=== PATIENT | female | born 1995 | race Caucasian/White ===

== ENCOUNTER 2019-03-22 10:53 | Emergency (ER) | payer OTHER, SELFPAY ==
[2019-03-22] VITALS (8 sets, daily range): BP systolic 98–122; BP diastolic 46–70; PULSE 91–129; RESP 18; TEMP 37.7–39.6; O2SAT 98–100; BMI 23.5
[2019-03-22] MEDS: ONDANSETRON 4 MG/2 ML INJ IV (11:26)
[2019-03-22] MEDS: SODIUM CHLORIDE 0.9% 1,000 ML 1000 ML IV ×2 (11:26→12:20)
[2019-03-22] MEDS: KETOROLAC 60 MG/2 ML VIAL 30 MG IV (11:26)
--- NOTE | 2019-03-22 11:26 | ED.NAVMDI ---
HPI - Nausea/Vomiting/Diarrhea <Adelia Crooks PA-C - Last Filed: 03/22/19 20:43> General Chief complaint: Nausea/Vomiting/Diarrhea Stated complaint: fever,vomiting x4days Time Seen by Provider: 03/22/19 11:11 Source: patient Mode of arrival: Ambulatory Limitations: no limitations History of Present Illness HPI Narrative: This healthy 21-year-old female is to ED secondary to 5 day history of fever, started at home on Thursday with shakes and chills. She thinks her home thermometer may not have been accurate but read up to 107. She states that she has had some cold symptoms that seem to get better, but that same day she awoke with headache and hoarse voice. She has also had some dry cough and runny nose. she has also had persistent vomiting that started on Thursday morning. She states that she has not been able to keep down any food or fluids, and when she gets up she feels more dizzy and nauseated. She denies abdominal pain. She denies any diarrhea or bowel changes. She denies any possibility of , states she has menses now. She states that all of her symptoms have been persistent through the weekend, went into outpatient clinic today and was sent here due to inability to keep down fluids. She denies any recent travel or known exposures though has been around some sick coworkers. She denies any dyspnea, chest pain or wheeze. She denies any urinary symptoms or other complaints on systems review Related Data Previous Rx's Medication Instructions Recorded fluconazole [Diflucan] 150 mg PO Q3D #2 tab 03/22/19 levofloxacin [Levaquin] 500 mg PO DAILY 7 Days tab 03/22/19 ondansetron 4 mg PO Q8H PRN 3 Days tab 03/22/19 Allergies Allergy/AdvReac Type Severity Reaction Status Date / Time No Known Drug Allergies Allergy Verified 03/22/19 11:22 Review of Systems <Adelia Crooks PA-C - Last Filed: 03/22/19 20:43> Review of Systems ROS Unobtainable: All systems reviewed & are unremarkable except as noted in HPI and below Patient History <Adelia Crooks PA-C - Last Filed: 03/22/19 20:43> Medical History (Updated 03/22/19 @ 13:40 by Adelia Crooks PA-C) No chronic problems (Acute) Surgical History (Updated 03/22/19 @ 11:54 by Adelia Crooks PA-C) Status post tonsillectomy (Chronic) Social History Smoking Status: Never smoker Substance Use Type: does not use Exam <Adelia Crooks PA-C - Last Filed: 03/22/19 20:43> Narrative Exam Narrative: GENERAL APPEARANCE: Patient resting comfortably, in no distress (on cell phone). EYES: PERRL, EOMI. EARS: Normal auditory canals, TMS intact with normal light reflexes. ORAL CAVITY: Normal oropharynx. THROAT: Mild erythema without exudate NECK/THYROID: Neck supple, full range of motion, shotty cervical lymphadenopathy. LUNGS: Clear to auscultation bilaterally, occasional dry cough on exam. HEART: RRR without murmur, nl S1, S2, no S3 or S4. ABDOMEN: Soft, nontender, nondistended DERMATOLOGIC: No exanthem Initial Vital Signs Initial Vital Signs: Vital Signs Temperature 103.2 F H 03/22/19 11:12 Pulse Rate 122 H 03/22/19 11:12 Respiratory Rate 18 03/22/19 11:12 Blood Pressure 122/70 03/22/19 11:12 Pulse Oximetry 98 03/22/19 11:12 <Shane Zhu DO - Last Filed: 03/23/19 07:58> Initial Vital Signs Initial Vital Signs: Vital Signs Temperature 103.2 F H 03/22/19 11:12 Pulse Rate 122 H 03/22/19 11:12 Respiratory Rate 18 03/22/19 11:12 Blood Pressure 122/70 03/22/19 11:12 Pulse Oximetry 98 03/22/19 11:12 Course <Adelia Crooks PA-C - Last Filed: 03/22/19 20:43> Course Additional Information: Patient has not had any recurrent vomiting while in the department, tolerating fluids and bland food so appears to be able to tolerate p.o. medication for pyelonephritis. Discussed importance of return if any acutely worsening symptoms again or unable to manage p.o. fluids or medications, as well as of follow-up with PCP in a couple of days and she is agreeable Orders Ordered: Discontinued Medications Acetaminophen (Tylenol) 650 mg PO NOW ONE Stop: 03/22/19 12:06 Last Admin: 03/22/19 12:19 Dose: 650 mg Documented by: LEANN Sodium Chloride (Normal Saline 0.9%) 1,000 mls @ 1,000 mls/hr IV BOLUS ONE Stop: 03/22/19 12:19 Last Infusion: 03/22/19 12:22 Dose: 0 mls/hr Documented by: Admin: 03/22/19 11:26 Dose: 1,000 mls/hr Documented by: LEANN Sodium Chloride (Normal Saline 0.9%) 1,000 mls @ 1,000 mls/hr IV BOLUS ONE Stop: 03/22/19 12:56 Last Infusion: 03/22/19 13:28 Dose: 0 mls/hr Documented by: Admin: 03/22/19 12:20 Dose: 1,000 mls/hr Documented by: LEANN Ketorolac Tromethamine (Toradol) 30 mg IV NOW ONE Stop: 03/22/19 11:23 Last Admin: 03/22/19 11:26 Dose: 30 mg Documented by: LEANN Lidocaine/Prilocaine (Lidocaine-Prilocaine Cream) 5 gm TOP NOW ONE Stop: 03/22/19 12:06 Last Admin: 03/22/19 12:22 Dose: Not Given Documented by: LEANN Ondansetron HCl (Zofran) 4 mg IV NOW ONE Stop: 03/22/19 11:21 Last Admin: 03/22/19 11:26 Dose: 4 mg Documented by: LEANN Pantoprazole Sodium (Protonix) 40 mg IV NOW ONE Stop: 03/22/19 12:01 Last Admin: 03/22/19 12:20 Dose: 40 mg Documented by: LEANN Vital Signs Vital signs: Vital Signs - 8 hr 03/22/19 12:49 03/22/19 13:08 03/22/19 13:23 Temperature 99.8 F H Pulse Rate 91 H Pulse Rate [Orthostatic Lying] 91 H Pulse Rate [Orthostatic Sitting] 93 H Pulse Rate [Orthostatic Standing] 97 H Blood Pressure [Left Arm] 103/46 L Blood Pressure [Orthostatic Lying] 102/53 L Blood Pressure [Orthostatic Sitting] 98/61 Blood Pressure [Orthostatic Standing] 106/59 L Pulse Oximetry 100 <Shane Zhu DO - Last Filed: 03/23/19 07:58> Orders Ordered: Discontinued Medications Acetaminophen (Tylenol) 650 mg PO NOW ONE Stop: 03/22/19 12:06 Last Admin: 03/22/19 12:19 Dose: 650 mg Documented by: LEANN Sodium Chloride (Normal Saline 0.9%) 1,000 mls @ 1,000 mls/hr IV BOLUS ONE Stop: 03/22/19 12:19 Last Infusion: 03/22/19 12:22 Dose: 0 mls/hr Documented by: Admin: 03/22/19 11:26 Dose: 1,000 mls/hr Documented by: LEANN Sodium Chloride (Normal Saline 0.9%) 1,000 mls @ 1,000 mls/hr IV BOLUS ONE Stop: 03/22/19 12:56 Last Infusion: 03/22/19 13:28 Dose: 0 mls/hr Documented by: Admin: 03/22/19 12:20 Dose: 1,000 mls/hr Documented by: LEANN Ketorolac Tromethamine (Toradol) 30 mg IV NOW ONE Stop: 03/22/19 11:23 Last Admin: 03/22/19 11:26 Dose: 30 mg Documented by: LEANN Lidocaine/Prilocaine (Lidocaine-Prilocaine Cream) 5 gm TOP NOW ONE Stop: 03/22/19 12:06 Last Admin: 03/22/19 12:22 Dose: Not Given Documented by: LEANN Ondansetron HCl (Zofran) 4 mg IV NOW ONE Stop: 03/22/19 11:21 Last Admin: 03/22/19 11:26 Dose: 4 mg Documented by: LEANN Pantoprazole Sodium (Protonix) 40 mg IV NOW ONE Stop: 03/22/19 12:01 Last Admin: 03/22/19 12:20 Dose: 40 mg Documented by: LEANN Vital Signs Vital signs: Vital Signs - 8 hr 03/22/19 12:49 03/22/19 13:08 03/22/19 13:23 Temperature 99.8 F H Pulse Rate 91 H Pulse Rate [Orthostatic Lying] 91 H Pulse Rate [Orthostatic Sitting] 93 H Pulse Rate [Orthostatic Standing] 97 H Blood Pressure [Left Arm] 103/46 L Blood Pressure [Orthostatic Lying] 102/53 L Blood Pressure [Orthostatic Sitting] 98/61 Blood Pressure [Orthostatic Standing] 106/59 L Pulse Oximetry 100 MDM - Nausea/Vomiting/Diarrhea <Adelia Crooks PA-C - Last Filed: 03/22/19 20:43> Lab Data Attestation: I reviewed the patient's lab results. Result diagrams: 03/22/19 11:20 03/22/19 11:20 Labs: Lab Results 03/22/19 03/22/19 03/22/19 Range/Units 11:17 11:20 11:20 WBC 20.4 H (4.5-11.0) X10^3/uL RBC 4.20 (4.0-5.2) X10^6/uL Hgb 13.0 (12.0-16.0) g/dL Hct 37.2 (36-46) % MCV 88.7 (80-100) fL MCH 31.0 (26-34) PG MCHC 34.9 (30-36) % RDW 12.5 (11.6-14.8) % Plt Count 158 (150-400) X10^3/uL Neut % (Auto) 92.1 H (50-75) % Lymph % (Auto) 1.9 L (25-40) % [place] % (Auto) 5.7 (3-14) % Eos % (Auto) 0.0 L (2-4) % Baso % (Auto) 0.3 (0-2) % Neut # (Auto) 50365 H (6558-9590) /uL Lymph # (Auto) 400 L (3255-8512) /uL [place] # (Auto) 1200 H (0-900) /uL Eos # (Auto) 0 (0-450) /uL Baso # (Auto) 100 (0-100) /uL Sodium 131 L (137-145) mmol/L Potassium 4.2 (3.4-5.1) mmol/L Chloride 96 L (98-107) mmol/L Carbon Dioxide 24 (22-32) mmol/L BUN 15 (7-17) mg/dL Creatinine 1.10 H (0.52-1.04) mg/dL Estimated GFR > 60.0 (>60) mL/min BUN/Creatinine Ratio 13.6 (6-22) Glucose 134 H (70-100) mg/dL Lactate (0.7-2.1) mmol/L Calcium 9.4 (8.4-10.2) mg/dL Total Bilirubin 0.7 (0.2-1.3) mg/dL AST 19 (14-36) IU/L ALT 16 (<35) IU/L Alkaline Phosphatase 85 (38-126) U/L Total Protein 7.0 (6.3-8.2) g/dL Albumin 3.8 (3.5-5.0) g/dL Globulin 3.2 (1.7-4.1) g/dL Albumin/Globulin Ratio 1.2 (1.0-2.8) Lipase (23-300) U/L Urine RBC (0-5/HPF) Urine WBC (0-5/HPF) Ur Squamous Epith Cells (0-5/HPF) Ur Transition Epith Cell (0-5/HPF) Ur Renal Epithelial Cell (0-1/HPF) Urine Bacteria (None) Ur Culture Indicated? Influenza A & B (PCR) Negative (Negative) 03/22/19 03/22/19 03/22/19 Range/Units 11:20 11:27 12:30 WBC (4.5-11.0) X10^3/uL RBC (4.0-5.2) X10^6/uL Hgb (12.0-16.0) g/dL Hct (36-46) % MCV (80-100) fL MCH (26-34) PG MCHC (30-36) % RDW (11.6-14.8) % Plt Count (150-400) X10^3/uL Neut % (Auto) (50-75) % Lymph % (Auto) (25-40) % [place] % (Auto) (3-14) % Eos % (Auto) (2-4) % Baso % (Auto) (0-2) % Neut # (Auto) (6655-3287) /uL Lymph # (Auto) (7498-7120) /uL [place] # (Auto) (0-900) /uL Eos # (Auto) (0-450) /uL Baso # (Auto) (0-100) /uL Sodium (137-145) mmol/L Potassium (3.4-5.1) mmol/L Chloride (98-107) mmol/L Carbon Dioxide (22-32) mmol/L BUN (7-17) mg/dL Creatinine (0.52-1.04) mg/dL Estimated GFR (>60) mL/min BUN/Creatinine Ratio (6-22) Glucose (70-100) mg/dL Lactate 1.1 (0.7-2.1) mmol/L Calcium (8.4-10.2) mg/dL Total Bilirubin (0.2-1.3) mg/dL AST (14-36) IU/L ALT (<35) IU/L Alkaline Phosphatase (38-126) U/L Total Protein (6.3-8.2) g/dL Albumin (3.5-5.0) g/dL Globulin (1.7-4.1) g/dL Albumin/Globulin Ratio (1.0-2.8) Lipase < 10 L (23-300) U/L Urine RBC 1-5/hpf (0-5/HPF) Urine WBC 30-100/hpf H (0-5/HPF) Ur Squamous Epith Cells 1-5 /hpf (0-5/HPF) Ur Transition Epith Cell 1-5/hpf (0-5/HPF) Ur Renal Epithelial Cell 1-5/hpf H (0-1/HPF) Urine Bacteria Many (>30) H (None) Ur Culture Indicated? Specimen cultured Influenza A & B (PCR) (Negative) Point of Care Testing Test Results Negative Urine Dip Bedside Urine Glucose Negative Bedside Urine Bilirubin + 1 Bedside Urine Ketone ++ 40 Urine Specific [place] 1.015 Bedside Urine Occult Blood +++ Bedside Urine pH 6.0 Bedside Urine Protein +++ 300 Bedside Urine Urobilinogen +/- 1mg Bedside Urine Nitrite + Positive Bedside Urine Leukocytes +++ 500 Esterase Imaging Data Chest x-ray: Radiologist's impression: 18 Adelia Crooks PA-C Find Patient Imaging - Leslie Castillo 23 F 1995 ACTIVITY DATE EXAM STATUS AUTHOR 03/22/19 11:44 Signed Gaurav Ruff ORDER STATUS ORDER START ORDER DETAIL CT head/brain wo con Cancelled 03/22/19 12:05 CT facial bones wo con Cancelled 03/22/19 12:[address] [address] XRay Report Signed Patient: Leslie Castillo [facility]#: [id number] : 1995Acct:[id number] Age/Sex: 23 / FDate of Service: 03/22/19 Loc: ED Accession Number: [id number] Procedure: XR chest 1V Ordering Provider: Aedlia Crooks P.A-C PROCEDURE: XR CHEST 1V INDICATIONS: cough, fever TECHNIQUE: One view of the chest was acquired. COMPARISON: None. FINDINGS: Surgical changes and devices: None. Lungs and pleura: An incomplete inspiratory result is noted, causing a crowded appearance to the lung markings. No focal infiltrates are seen. No pneumothorax or significant pleural effusions are seen. Mediastinum: Mediastinal contours appear normal. Heart size is normal. Bones and chest wall: No suspicious bony lesions. Overlying soft tissues appear unremarkable. IMPRESSION: Limited portable chest examination, without a significant cardiopulmonary abnormality identified. Dictated by: Gaurav Ruff M.D. on 03/22/2019 at 11:14 Approved by: Gaurav Ruff M.D. on 03/22/2019 at 11:14 <Shane Zhu DO - Last Filed: 03/23/19 07:58> Lab Data Labs: Lab Results 03/22/19 03/22/19 03/22/19 Range/Units 11:17 11:20 11:20 WBC 20.4 H (4.5-11.0) X10^3/uL RBC 4.20 (4.0-5.2) X10^6/uL Hgb 13.0 (12.0-16.0) g/dL Hct 37.2 (36-46) % MCV 88.7 (80-100) fL MCH 31.0 (26-34) PG MCHC 34.9 (30-36) % RDW 12.5 (11.6-14.8) % Plt Count 158 (150-400) X10^3/uL Neut % (Auto) 92.1 H (50-75) % Lymph % (Auto) 1.9 L (25-40) % [place] % (Auto) 5.7 (3-14) % Eos % (Auto) 0.0 L (2-4) % Baso % (Auto) 0.3 (0-2) % Neut # (Auto) 29419 H (9360-4899) /uL Lymph # (Auto) 400 L (2841-3294) /uL [place] # (Auto) 1200 H (0-900) /uL Eos # (Auto) 0 (0-450) /uL Baso # (Auto) 100 (0-100) /uL Sodium 131 L (137-145) mmol/L Potassium 4.2 (3.4-5.1) mmol/L Chloride 96 L (98-107) mmol/L Carbon Dioxide 24 (22-32) mmol/L BUN 15 (7-17) mg/dL Creatinine 1.10 H (0.52-1.04) mg/dL Estimated GFR > 60.0 (>60) mL/min BUN/Creatinine Ratio 13.6 (6-22) Glucose 134 H (70-100) mg/dL Lactate (0.7-2.1) mmol/L Calcium 9.4 (8.4-10.2) mg/dL Total Bilirubin 0.7 (0.2-1.3) mg/dL AST 19 (14-36) IU/L ALT 16 (<35) IU/L Alkaline Phosphatase 85 (38-126) U/L Total Protein 7.0 (6.3-8.2) g/dL Albumin 3.8 (3.5-5.0) g/dL Globulin 3.2 (1.7-4.1) g/dL Albumin/Globulin Ratio 1.2 (1.0-2.8) Lipase (23-300) U/L Urine RBC (0-5/HPF) Urine WBC (0-5/HPF) Ur Squamous Epith Cells (0-5/HPF) Ur Transition Epith Cell (0-5/HPF) Ur Renal Epithelial Cell (0-1/HPF) Urine Bacteria (None) Ur Culture Indicated? Influenza A & B (PCR) Negative (Negative) 03/22/19 03/22/19 03/22/19 Range/Units 11:20 11:27 12:30 WBC (4.5-11.0) X10^3/uL RBC (4.0-5.2) X10^6/uL Hgb (12.0-16.0) g/dL Hct (36-46) % MCV (80-100) fL MCH (26-34) PG MCHC (30-36) % RDW (11.6-14.8) % Plt Count (150-400) X10^3/uL Neut % (Auto) (50-75) % Lymph % (Auto) (25-40) % [place] % (Auto) (3-14) % Eos % (Auto) (2-4) % Baso % (Auto) (0-2) % Neut # (Auto) (4761-9893) /uL Lymph # (Auto) (6582-7645) /uL [place] # (Auto) (0-900) /uL Eos # (Auto) (0-450) /uL Baso # (Auto) (0-100) /uL Sodium (137-145) mmol/L Potassium (3.4-5.1) mmol/L Chloride (98-107) mmol/L Carbon Dioxide (22-32) mmol/L BUN (7-17) mg/dL Creatinine (0.52-1.04) mg/dL Estimated GFR (>60) mL/min BUN/Creatinine Ratio (6-22) Glucose (70-100) mg/dL Lactate 1.1 (0.7-2.1) mmol/L Calcium (8.4-10.2) mg/dL Total Bilirubin (0.2-1.3) mg/dL AST (14-36) IU/L ALT (<35) IU/L Alkaline Phosphatase (38-126) U/L Total Protein (6.3-8.2) g/dL Albumin (3.5-5.0) g/dL Globulin (1.7-4.1) g/dL Albumin/Globulin Ratio (1.0-2.8) Lipase < 10 L (23-300) U/L Urine RBC 1-5/hpf (0-5/HPF) Urine WBC 30-100/hpf H (0-5/HPF) Ur Squamous Epith Cells 1-5 /hpf (0-5/HPF) Ur Transition Epith Cell 1-5/hpf (0-5/HPF) Ur Renal Epithelial Cell 1-5/hpf H (0-1/HPF) Urine Bacteria Many (>30) H (None) Ur Culture Indicated? Specimen cultured Influenza A & B (PCR) (Negative) Point of Care Testing Test Results Negative Urine Dip Bedside Urine Glucose Negative Bedside Urine Bilirubin + 1 Bedside Urine Ketone ++ 40 Urine Specific [place] 1.015 Bedside Urine Occult Blood +++ Bedside Urine pH 6.0 Bedside Urine Protein +++ 300 Bedside Urine Urobilinogen +/- 1mg Bedside Urine Nitrite + Positive Bedside Urine Leukocytes +++ 500 Esterase Discharge Plan Departure Patient Disposition: Home Clinical Impression: Pyelonephritis, Acute dehydration Discharge Date/Time: 03/22/19 13:53 Instructions: DI for Kidney Infection, DI for Dehydration -- Adult Activity Restrictions/Additional Instructions: It appears on your lab work that you have a kidney infection today, which is most likely causing your vomiting. I have prescribed a once daily antibiotic for you called Levaquin, please pick this up right away and take the 1st dose. I have also prescribed it antinausea medicine like what you had in the IV here that you can use as needed. I did refill your Diflucan that you have had before in case you have a yeast infection caused by antibiotics. As we talked about, you must return to the ED if you are worse again, unable to keep down your fluids or medication this or have high fever that is not responding to ibuprofen and Tylenol. Please continue to take ibuprofen and Tylenol as needed for the next few days. Please call your PCP today and let them know you were seen in the emergency room and we advised due to follow up in the next 48-72 hours for recheck. Your urinary culture should be back by then so that we can make sure this antibiotic is a good choice for the infection Prescriptions: New levofloxacin [Levaquin] 500 mg tablet 500 mg PO DAILY 7 Days RF: 0 ondansetron 4 mg tablet,disintegrating 4 mg PO Q8H PRN (Reason: nausea and vomiting) 3 Days RF: 0 fluconazole [Diflucan] 150 mg tablet 150 mg PO Q3D Qty: 2 RF: 0 Referrals: [facility] [Provider Group] Stand Alone Forms: Work Release Note <Shane Zhu, DO - Last Filed: 03/23/19 07:58> Sign Out Provider Sign Out Attestation: Dr Zhu Co-Sign Statement: I was available for consultation during this patient's emergency department visit. This chart is signed by myself for administrative purposes only. I did not have direct contact with this patient during this visit. They were seen independently by the APC.
[2019-03-22 11:34] LABS: Add Manual Diff / Slide Review NO; Basophils Absolute Auto 100 /uL (0-100); Basophils Percent Auto 0.3 % (0-2); Eosinophils Absolute Auto 0 /uL (0-450); Hematocrit 37.2 % (36-46); Lymphocytes Absolute Auto 400 /uL (1100-4500); Lymphocytes Percent Auto 1.9 % (25-40); Mean Corpuscular HGB Conc 34.9 % (30-36); Mean Corpuscular Volume 88.7 fL (80-100); Monocytes Absolute Auto 1200 /uL (0-900); Monocytes Percent Auto 5.7 % (3-14); Neutrophils Absolute Auto 18800 /uL (1500-7000); Neutrophils Percent Auto 92.1 % (50-75); Platelet Count 158 X10^3/uL (150-400); Red Cell Distribution Width 12.5 % (11.6-14.8); White Blood Cell Count 20.4 X10^3/uL (4.5-11.0)
[2019-03-22 11:41] LABS: Influenza A and B by PCR Rapid Negative (Negative)
--- NOTE | 2019-03-22 11:44 | DI.RAD.S_ITS ---
PROCEDURE: XR CHEST 1V INDICATIONS: cough, fever TECHNIQUE: One view of the chest was acquired. COMPARISON: None. FINDINGS: Surgical changes and devices: None. Lungs and pleura: An incomplete inspiratory result is noted, causing a crowded appearance to the lung markings. No focal infiltrates are seen. No pneumothorax or significant pleural effusions are seen. Mediastinum: Mediastinal contours appear normal. Heart size is normal. Bones and chest wall: No suspicious bony lesions. Overlying soft tissues appear unremarkable. IMPRESSION: Limited portable chest examination, without a significant cardiopulmonary abnormality identified. Dictated by: Gaurav Ruff M.D. on 03/22/2019 at 11:14 Approved by: Gaurav Ruff M.D. on 03/22/2019 at 11:14
[2019-03-22 11:50] LABS: Alanine Aminotransferase 16 IU/L (<35); Albumin 3.8 g/dL (3.5-5.0); Albumin Globulin Ratio 1.2 (1.0-2.8); Alkaline Phosphatase 85 U/L (38-126); Aspartate Aminotransferase 19 IU/L (14-36); BUN Creatinine Ratio 13.6 (6-22); Bilirubin Total 0.7 mg/dL (0.2-1.3); Blood Urea Nitrogen 15 mg/dL (7-17); Calcium 9.4 mg/dL (8.4-10.2); Carbon Dioxide 24 mmol/L (22-32); Chloride 96 mmol/L (98-107); Estimated Glomerular Filt Rate > 60.0 mL/min (>60); Globulin 3.2 g/dL (1.7-4.1); Glucose 134 mg/dL (70-100); HEMOLYSIS < 15 (0-50); Potassium 4.2 mmol/L (3.4-5.1); Sodium 131 mmol/L (137-145)
[2019-03-22 11:59] LABS: Lactate (Lactic Acid) 1.1 mmol/L (0.7-2.1)
[2019-03-22 12:03] LABS: Lipase < 10 U/L (23-300)
[2019-03-22] MEDS: ACETAMINOPHEN 325 MG TABLET 650 MG PO (12:19)
[2019-03-22] MEDS: PANTOPRAZOLE 40 MG VIAL IV (12:20)
[2019-03-22 13:11] LABS: Bacteria Urine Many (>30); Culture Indicated Urine Specimen Cultured; RBC Urine 1-5/HPF (0-5/HPF); Renal Epithelial Cells Urine 1-5/HPF (0-1/HPF); Squamous Epithelial Cell Urine 1-5 /HPF (0-5/HPF); Transitional Epi Cells Urine 1-5/HPF (0-5/HPF); WBC Urine 30-100/HPF (0-5/HPF)
[2019-03-23 17:55] LABS: Procalcitonin 13.98 ng/mL (<0.5)
== END 2019-03-22 13:53 | disposition home or self-care (01) ==
PROVIDERS: Emergency Medicine; Emergency Provider Internal Medicine
DX: N10 Acute pyelonephritis (principal); E86.0 Dehydration
CPT/HCPCS: 36415; 71045; 80053; 81003; 81015; 81025; 83605; 83690; 84145; 85025; 87077; 87086; 87186; 87502; 96361; 96374; 96375; 99283; 99284; C9113; J1885; J2405

== ENCOUNTER 2019-03-23 15:11 | Emergency (ER) | payer OTHER, SELFPAY ==
[2019-03-23 15:24] VITALS: BP 122/80; PULSE 135; RESP 18; TEMP 37.3; O2SAT 100; BMI 23.5
--- NOTE | 2019-03-23 15:50 | ED.FEMALEGU ---
HPI - Female Genitourinary <JEREMI Hansen - Last Filed: 03/23/19 21:19> General Chief complaint: Urogenital-Female Stated complaint: kidney pain getting worse Time Seen by Provider: 03/23/19 15:14 Source: patient Mode of arrival: Ambulatory Limitations: no limitations History of Present Illness HPI Narrative: 23-year-old female presents emergency department complaining of continued vomiting and right flank pain. She states she was seen yesterday in the emergency department for a fever and vomiting for the past 5 days and was diagnosed with pyelonephritis. She reports she was given Levaquin and ondansetron, she states she has been taking the zofran every 6 hours and she has taken Levaquin last evening and this morning. However, she continues to report a fever of up to 105F with Tylenol and ibuprofen and continued vomiting despite the Zofran. She states she vomits every 1-2 hours. She continues to have a dull aching 4/10 right flank pain that is worse with movement and palpation as well as dysuria. Patient denies abdominal pain, chest pain, diarrhea, dizziness, or other concerns. Related Data Previous Rx's Medication Instructions Recorded fluconazole [Diflucan] 150 mg PO Q3D #2 tab 03/22/19 levofloxacin [Levaquin] 500 mg PO DAILY 7 Days tab 03/22/19 ondansetron 4 mg PO Q8H PRN 3 Days tab 03/22/19 metoclopramide HCl [Reglan] 10 mg PO Q6H PRN #14 tab 03/23/19 Allergies Allergy/AdvReac Type Severity Reaction Status Date / Time No Known Drug Allergies Allergy Verified 03/22/19 11:22 Review of Systems <JEREMI Hansen - Last Filed: 03/23/19 21:19> Review of Systems Narrative: REVIEW OF SYSTEMS: GENERAL: Denies fever, chills, malaise, or wt. loss. HENT: No head trauma, sore throat, or dysphagia. EYES: No loss of vision, double vision, eye pain, or irritation. CARDIOVASCULAR: No chest pain, palpitations, or orthopnea. RESPIRATORY: No shortness of breath or cough. GASTROINTESTINAL: Complains of nausea vomiting, see HPI. GENITOURINARY: Reports right flank pain, see HPI. No vaginal discharge or dyspareunia. Denies concerns for STIs MUSCULOSKELETAL: No pain, weakness, or trauma. INTEGUMENTARY: No rash, lesions, or pruritus. NEURO: No numbness, tingling, memory loss, confusion, or headaches. PSYCH: No behavior or mood changes. Patient History <JEREMI Hansen - Last Filed: 03/23/19 21:19> Medical History No chronic problems (Acute) Surgical History Status post tonsillectomy (Chronic) Substance Use Type: does not use Exam <JEREMI Hansen - Last Filed: 03/23/19 21:19> Initial Vital Signs Initial Vital Signs: Vital Signs Temperature 99.2 F 03/23/19 15:24 Pulse Rate 135 H 03/23/19 15:24 Respiratory Rate 18 03/23/19 15:24 Blood Pressure 122/80 03/23/19 15:24 Pulse Oximetry 100 03/23/19 15:24 PHYSICAL EXAMINATION: GENERAL: Well groomed, alert, and cooperative. Answers questions promptly and appropriately. Vital signs noted. HENT: Normocephalic, atraumatic. Hearing intact. Oral mucosa is pink and moist. EYES: Conjunctiva pink, sclera white, no periorbital swelling. CARDIOVASCULAR: S1 and S2 sounds normal. Tachycardia, no murmurs, clicks, or bruits. No pedal edema. RESPIRATORY: Normal respiratory rate, trachea midline, airway patent. No stridor, nasal flaring or accessory muscle use. Lungs are clear in all [place] without wheeze, rhonchi, or crackles. GASTROINTESTINAL: Bowel sounds normoactive. Abdomen is soft and non-tender. No organomegaly, no palpable masses. GENITALURINARY: Right CVA tenderness. MUSCULOSKELETAL: Normal gait and coordination. Equal tone and mass bilaterally. EXTREMITIES: CMS intact, no pedal edema. SKIN: Warm, dry, soft, appropriate color for ethnicity. No lesions, rashes, or wounds. NEURO: Alert and Oriented X 3. Good coordination. No ataxia, or sensory deficits, or cognitive issues. PSYCH: Appropriate affect and mood. <Shane Zhu DO - Last Filed: 03/24/19 06:59> Initial Vital Signs Initial Vital Signs: Vital Signs Temperature 99.2 F 03/23/19 15:24 Pulse Rate 135 H 03/23/19 15:24 Respiratory Rate 18 03/23/19 15:24 Blood Pressure 122/80 03/23/19 15:24 Pulse Oximetry 100 03/23/19 15:24 Course <JEREMI Hansen - Last Filed: 03/23/19 21:19> Course Course Narrative: Patient was given 1 L of normal saline, 1 g of ceftriaxone, Toradol, and Reglan in the emergency department. Patient initially had a heart rate of 135, after administration of medication her heart rate declined to 112. Another liter was administered and her HR decreased to 90bpm.. I spoke with Dr. Boles who agreed that due to decreased white blood cell count, decreased procalcitonin, and response to fluid, patient can be closely followed as out patient. Patient did not vomit during emergency department stay. She agreed to plan of care and denied any other questions. Orders Ordered: Discontinued Medications Sodium Chloride (Normal Saline 0.9%) 1,000 mls @ 1,000 mls/hr IV BOLUS ONE Stop: 03/23/19 16:41 Last Infusion: 03/23/19 17:18 Dose: 0 mls/hr Documented by: Admin: 03/23/19 16:04 Dose: 1,000 mls/hr Documented by: ABELINO Ceftriaxone Sodium/Dextrose (Rocephin) 1 gm in 50 mls @ 100 mls/hr IV NOW ONE Stop: 03/23/19 16:20 Last Infusion: 03/23/19 16:45 Dose: 0 mls/hr Documented by: Admin: 03/23/19 16:04 Dose: 100 mls/hr Documented by: ABELINO Sodium Chloride (Normal Saline 0.9%) 1,000 mls @ 1,000 mls/hr IV BOLUS ONE Stop: 03/23/19 17:59 Last Infusion: 03/23/19 18:12 Dose: 0 mls/hr Documented by: Admin: 03/23/19 17:17 Dose: 1,000 mls/hr Documented by: ABELINO Ketorolac Tromethamine (Toradol) 30 mg IV NOW ONE Stop: 03/23/19 15:45 Last Admin: 03/23/19 16:03 Dose: 30 mg Documented by: ABELINO Metoclopramide HCl (Reglan) 10 mg PO NOW ONE Stop: 03/23/19 15:46 Last Admin: 03/23/19 16:44 Dose: Not Given Documented by: ABELINO Metoclopramide HCl (Reglan) 10 mg IV NOW ONE Stop: 03/23/19 16:03 Last Admin: 03/23/19 16:05 Dose: 10 mg Documented by: ABELINO Vital Signs Vital signs: Vital Signs - 8 hr 03/23/19 15:24 03/23/19 16:30 03/23/19 17:33 Temperature 99.2 F Pulse Rate 135 H 113 H 93 H Respiratory Rate 18 23 18 Blood Pressure 122/80 Blood Pressure [Left Arm] 114/59 L 108/63 Pulse Oximetry 100 99 98 03/23/19 18:34 Temperature 98.0 F Pulse Rate 80 Respiratory Rate 18 Blood Pressure Blood Pressure [Left Arm] 110/70 Pulse Oximetry 98 <Shane Zhu DO - Last Filed: 03/24/19 06:59> Orders Ordered: Discontinued Medications Sodium Chloride (Normal Saline 0.9%) 1,000 mls @ 1,000 mls/hr IV BOLUS ONE Stop: 03/23/19 16:41 Last Infusion: 03/23/19 17:18 Dose: 0 mls/hr Documented by: Admin: 03/23/19 16:04 Dose: 1,000 mls/hr Documented by: ABELINO Ceftriaxone Sodium/Dextrose (Rocephin) 1 gm in 50 mls @ 100 mls/hr IV NOW ONE Stop: 03/23/19 16:20 Last Infusion: 03/23/19 16:45 Dose: 0 mls/hr Documented by: Admin: 03/23/19 16:04 Dose: 100 mls/hr Documented by: ABELINO Sodium Chloride (Normal Saline 0.9%) 1,000 mls @ 1,000 mls/hr IV BOLUS ONE Stop: 03/23/19 17:59 Last Infusion: 03/23/19 18:12 Dose: 0 mls/hr Documented by: Admin: 03/23/19 17:17 Dose: 1,000 mls/hr Documented by: ABELINO Ketorolac Tromethamine (Toradol) 30 mg IV NOW ONE Stop: 03/23/19 15:45 Last Admin: 03/23/19 16:03 Dose: 30 mg Documented by: ABELINO Metoclopramide HCl (Reglan) 10 mg PO NOW ONE Stop: 03/23/19 15:46 Last Admin: 03/23/19 16:44 Dose: Not Given Documented by: ABELINO Metoclopramide HCl (Reglan) 10 mg IV NOW ONE Stop: 03/23/19 16:03 Last Admin: 03/23/19 16:05 Dose: 10 mg Documented by: ABELINO Vital Signs Vital signs: Vital Signs - 8 hr 03/23/19 15:24 03/23/19 16:30 03/23/19 17:33 Temperature 99.2 F Pulse Rate 135 H 113 H 93 H Respiratory Rate 18 23 18 Blood Pressure 122/80 Blood Pressure [Left Arm] 114/59 L 108/63 Pulse Oximetry 100 99 98 03/23/19 18:34 Temperature 98.0 F Pulse Rate 80 Respiratory Rate 18 Blood Pressure Blood Pressure [Left Arm] 110/70 Pulse Oximetry 98 MDM - Female Genitourinary <JEREMI Hansen - Last Filed: 03/23/19 21:19> Medical Records Attestation: I reviewed the patient's medical records. Lab Data Attestation: I reviewed the patient's lab results. Result diagrams: 03/23/19 15:51 03/23/19 15:51 Labs: Lab Results 03/23/19 03/23/19 03/23/19 Range/Units 15:15 15:51 15:51 WBC 9.5 D (4.5-11.0) X10^3/uL RBC 4.03 (4.0-5.2) X10^6/uL Hgb 12.5 (12.0-16.0) g/dL Hct 36.3 (36-46) % MCV 90.1 (80-100) fL MCH 30.9 (26-34) PG MCHC 34.3 (30-36) % RDW 13.0 (11.6-14.8) % Plt Count 148 L (150-400) X10^3/uL Neut % (Auto) 87.4 H (50-75) % Lymph % (Auto) 2.6 L (25-40) % [place] % (Auto) 9.8 (3-14) % Eos % (Auto) 0.0 L (2-4) % Baso % (Auto) 0.2 (0-2) % Neut # (Auto) 8300 H (4421-7303) /uL Lymph # (Auto) 200 L (5239-8422) /uL [place] # (Auto) 900 (0-900) /uL Eos # (Auto) 0 (0-450) /uL Baso # (Auto) 0 (0-100) /uL Sodium (137-145) mmol/L Potassium (3.4-5.1) mmol/L Chloride (98-107) mmol/L Carbon Dioxide (22-32) mmol/L BUN (7-17) mg/dL Creatinine (0.52-1.04) mg/dL Estimated GFR (>60) mL/min BUN/Creatinine Ratio (6-22) Glucose (70-100) mg/dL Lactate (0.7-2.1) mmol/L Calcium (8.4-10.2) mg/dL Total Bilirubin (0.2-1.3) mg/dL AST (14-36) IU/L ALT (<35) IU/L Alkaline Phosphatase (38-126) U/L Total Protein (6.3-8.2) g/dL Albumin (3.5-5.0) g/dL Globulin (1.7-4.1) g/dL Albumin/Globulin Ratio (1.0-2.8) Procalcitonin 9.25 H (<0.5) ng/mL Urine RBC 10-30/hpf H (0-5/HPF) Urine WBC 30-100/hpf H (0-5/HPF) Ur Squamous Epith Cells 1-5 /hpf (0-5/HPF) Urine Bacteria Moderate (10-30) H (None) Granular Casts 0-1/lpf (None) Urine Mucus 1+ H (Negative) Ur Culture Indicated? Specimen cultured 03/23/19 03/23/19 Range/Units 15:51 15:51 WBC (4.5-11.0) X10^3/uL RBC (4.0-5.2) X10^6/uL Hgb (12.0-16.0) g/dL Hct (36-46) % MCV (80-100) fL MCH (26-34) PG MCHC (30-36) % RDW (11.6-14.8) % Plt Count (150-400) X10^3/uL Neut % (Auto) (50-75) % Lymph % (Auto) (25-40) % [place] % (Auto) (3-14) % Eos % (Auto) (2-4) % Baso % (Auto) (0-2) % Neut # (Auto) (2559-4978) /uL Lymph # (Auto) (5417-0695) /uL [place] # (Auto) (0-900) /uL Eos # (Auto) (0-450) /uL Baso # (Auto) (0-100) /uL Sodium 132 L (137-145) mmol/L Potassium 4.2 (3.4-5.1) mmol/L Chloride 100 (98-107) mmol/L Carbon Dioxide 20 L (22-32) mmol/L BUN 12 (7-17) mg/dL Creatinine 0.90 (0.52-1.04) mg/dL Estimated GFR > 60.0 (>60) mL/min BUN/Creatinine Ratio 13.3 (6-22) Glucose 108 H (70-100) mg/dL Lactate 0.9 (0.7-2.1) mmol/L Calcium 9.6 (8.4-10.2) mg/dL Total Bilirubin 0.6 (0.2-1.3) mg/dL AST 22 (14-36) IU/L ALT 17 (<35) IU/L Alkaline Phosphatase 88 (38-126) U/L Total Protein 6.2 L (6.3-8.2) g/dL Albumin 3.3 L (3.5-5.0) g/dL Globulin 2.9 (1.7-4.1) g/dL Albumin/Globulin Ratio 1.1 (1.0-2.8) Procalcitonin (<0.5) ng/mL Urine RBC (0-5/HPF) Urine WBC (0-5/HPF) Ur Squamous Epith Cells (0-5/HPF) Urine Bacteria (None) Granular Casts (None) Urine Mucus (Negative) Ur Culture Indicated? Point of Care Testing Test Results Negative Urine Dip Bedside Urine Glucose Negative Bedside Urine Bilirubin - Negative Bedside Urine Ketone +++ 80 Urine Specific Rebuck 1.015 Bedside Urine Occult Blood +++ Bedside Urine pH 6 Bedside Urine Protein ++ 100 Bedside Urine Urobilinogen +/- 1mg Bedside Urine Nitrite - Negative Bedside Urine Leukocytes + [address] scan - abdomen: Radiologist's impression: [address] [address] [address] Scan Report Signed Patient: Leslie Castillo MMR#: [id number] : 1995Acct:[id number] Age/Sex: 23 / FDate of Service: 03/23/19 Loc: ED Accession Number: [id number] Procedure: CT kidney ureter bladder (KUB) Ordering Provider: Karen Khan PROCEDURE: CT KIDNEY URETER BLADDER (KUB) INDICATIONS: R flank tenderness r/o renal calculi TECHNIQUE: Noncontrast 5 mm thick sections acquired from the diaphragms to the symphysis. 5 mm thick coronal and sagittal reformats were then performed. For radiation dose reduction, the following was used: automated exposure control, adjustment of mA and/or kV according to patient size. COMPARISON: None. FINDINGS: Image quality: Excellent. Lung bases: Lung bases are clear. Heart size is normal. Urinary system: Right kidney is enlarged. There is perinephric stranding along the inferior pole. There is minimal prominence of the proximal ureter and periureteral stranding. No kidney stones. Bladder wall thickness is normal; no calcified bladder stones. Other solid organs: Liver is enlarged. Gallbladder is is unremarkable. Pancreas is normal in contours. Spleen is normal in size. No adrenal nodules. Peritoneum and bowel: Unenhanced bowel loops demonstrate normal wall thickness and caliber. No free fluid or air. The appendix is not visualized. Nodes and vessels: No retroperitoneal or mesenteric adenopathy by size criteria. Aorta and inferior vena cava are normal in caliber. Abdominal wall: No ventral hernias. Pelvis: Mild dependent free pelvic fluid. No inguinal hernias or adenopathy. Bones: No suspicious bony lesions. No vertebral body compression fractures. IMPRESSION: 1. Mild right perinephric fat stranding as well as proximal right periureteral stranding. No visualized stone. Recently passed stone cannot be excluded. Other etiologies such as infection cannot be excluded given lack of IV contrast. Recommend correlation to urinalysis. Dictated by: Vanessa Baez M.D. on 03/23/2019 at 16:01 Approved by: Vanessa Baez M.D. on 03/23/2019 at 16:19 ECG Data Interpretation: Sinus tachycardia, rate 112, OH interval 131, QTC 358. No ST elevation or ST depression. T-wave inversion noted in lead 3 and V1. No ectopy. EKG also viewed by Dr. Zhu per protocol. MDM Narrative Medical decision making narrative: 23-year-old female who was seen yesterday in the emergency department diagnosed with pyelonephritis, return emergency department for continued vomiting. She recently presents with tachycardia and low-grade elevated temp. This was corrected after administration of 2 L of fluid from a heart rate of 135 beats per minute to 90 beats per minute. Her pro calcitonin and white blood cell count are significantly trending down after taking Levaquin. Patient was given a dose of ceftriaxone in the emergency department to cover for gram-negative bacteria per culture, as sensitivity was not completed at this time. Less concern for sepsis due to resolution of tachycardia after administration of fluids, decreased white blood cell count, decreased procalcitonin, normal lactate, and resolution of symptoms in emergency department. Less likely renal calculi contributing to patient's symptoms due to negative CT scan. Patient was encouraged to increase fluid intake, monitor fever closely. strict return precautions given. Close follow-up instructions discussed <Shane Zhu, DO - Last Filed: 03/24/19 06:59> Lab Data Labs: Lab Results 03/23/19 03/23/19 03/23/19 Range/Units 15:15 15:51 15:51 WBC 9.5 D (4.5-11.0) X10^3/uL RBC 4.03 (4.0-5.2) X10^6/uL Hgb 12.5 (12.0-16.0) g/dL Hct 36.3 (36-46) % MCV 90.1 (80-100) fL MCH 30.9 (26-34) PG MCHC 34.3 (30-36) % RDW 13.0 (11.6-14.8) % Plt Count 148 L (150-400) X10^3/uL Neut % (Auto) 87.4 H (50-75) % Lymph % (Auto) 2.6 L (25-40) % [place] % (Auto) 9.8 (3-14) % Eos % (Auto) 0.0 L (2-4) % Baso % (Auto) 0.2 (0-2) % Neut # (Auto) 8300 H (6962-3504) /uL Lymph # (Auto) 200 L (5047-4224) /uL [place] # (Auto) 900 (0-900) /uL Eos # (Auto) 0 (0-450) /uL Baso # (Auto) 0 (0-100) /uL Sodium (137-145) mmol/L Potassium (3.4-5.1) mmol/L Chloride (98-107) mmol/L Carbon Dioxide (22-32) mmol/L BUN (7-17) mg/dL Creatinine (0.52-1.04) mg/dL Estimated GFR (>60) mL/min BUN/Creatinine Ratio (6-22) Glucose (70-100) mg/dL Lactate (0.7-2.1) mmol/L Calcium (8.4-10.2) mg/dL Total Bilirubin (0.2-1.3) mg/dL AST (14-36) IU/L ALT (<35) IU/L Alkaline Phosphatase (38-126) U/L Total Protein (6.3-8.2) g/dL Albumin (3.5-5.0) g/dL Globulin (1.7-4.1) g/dL Albumin/Globulin Ratio (1.0-2.8) Procalcitonin 9.25 H (<0.5) ng/mL Urine RBC 10-30/hpf H (0-5/HPF) Urine WBC 30-100/hpf H (0-5/HPF) Ur Squamous Epith Cells 1-5 /hpf (0-5/HPF) Urine Bacteria Moderate (10-30) H (None) Granular Casts 0-1/lpf (None) Urine Mucus 1+ H (Negative) Ur Culture Indicated? Specimen cultured 03/23/19 03/23/19 Range/Units 15:51 15:51 WBC (4.5-11.0) X10^3/uL RBC (4.0-5.2) X10^6/uL Hgb (12.0-16.0) g/dL Hct (36-46) % MCV (80-100) fL MCH (26-34) PG MCHC (30-36) % RDW (11.6-14.8) % Plt Count (150-400) X10^3/uL Neut % (Auto) (50-75) % Lymph % (Auto) (25-40) % [place] % (Auto) (3-14) % Eos % (Auto) (2-4) % Baso % (Auto) (0-2) % Neut # (Auto) (4944-1226) /uL Lymph # (Auto) (6356-5719) /uL [place] # (Auto) (0-900) /uL Eos # (Auto) (0-450) /uL Baso # (Auto) (0-100) /uL Sodium 132 L (137-145) mmol/L Potassium 4.2 (3.4-5.1) mmol/L Chloride 100 (98-107) mmol/L Carbon Dioxide 20 L (22-32) mmol/L BUN 12 (7-17) mg/dL Creatinine 0.90 (0.52-1.04) mg/dL Estimated GFR > 60.0 (>60) mL/min BUN/Creatinine Ratio 13.3 (6-22) Glucose 108 H (70-100) mg/dL Lactate 0.9 (0.7-2.1) mmol/L Calcium 9.6 (8.4-10.2) mg/dL Total Bilirubin 0.6 (0.2-1.3) mg/dL AST 22 (14-36) IU/L ALT 17 (<35) IU/L Alkaline Phosphatase 88 (38-126) U/L Total Protein 6.2 L (6.3-8.2) g/dL Albumin 3.3 L (3.5-5.0) g/dL Globulin 2.9 (1.7-4.1) g/dL Albumin/Globulin Ratio 1.1 (1.0-2.8) Procalcitonin (<0.5) ng/mL Urine RBC (0-5/HPF) Urine WBC (0-5/HPF) Ur Squamous Epith Cells (0-5/HPF) Urine Bacteria (None) Granular Casts (None) Urine Mucus (Negative) Ur Culture Indicated? Point of Care Testing Test Results Negative Urine Dip Bedside Urine Glucose Negative Bedside Urine Bilirubin - Negative Bedside Urine Ketone +++ 80 Urine Specific [place] 1.015 Bedside Urine Occult Blood +++ Bedside Urine pH 6 Bedside Urine Protein ++ 100 Bedside Urine Urobilinogen +/- 1mg Bedside Urine Nitrite - Negative Bedside Urine Leukocytes + 70 Esterase Discharge Plan Departure Patient Disposition: Home Clinical Impression: Pyelonephritis Discharge Date/Time: 03/23/19 18:30 Activity Restrictions/Additional Instructions: Thank you for entrusting me with your care today. As discussed, your laboratory work is reassuring that the infection is subsiding. Please continue to drink a large amount of fluids for the next few days. You may take Tylenol and ibuprofen as needed for fevers. Continue to take your Levofloxacin daily as prescribed. Please follow up with your primary care provider in the next week for re-evaluation. Emergency department if you develops uncontrollable vomiting, chest pain, shortness of breath, or new or worsening symptoms. Prescriptions: New metoclopramide HCl [Reglan] 10 mg tablet 10 mg PO Q6H PRN (Reason: nausea and vomiting) Qty: 14 RF: 0 No Action levofloxacin [Levaquin] 500 mg tablet 500 mg PO DAILY 7 Days RF: 0 ondansetron 4 mg tablet,disintegrating 4 mg PO Q8H PRN (Reason: nausea and vomiting) 3 Days RF: 0 fluconazole [Diflucan] 150 mg tablet 150 mg PO Q3D Qty: 2 RF: 0 <Shane Zhu, DO - Last Filed: 03/24/19 06:59> Sign Out Provider Sign Out Attestation: Dr Zhu Co-Sign Statement: I was available for consultation during this patient's emergency department visit. This chart is signed by myself for administrative purposes only. I did not have direct contact with this patient during this visit. They were seen independently by the APC.
[2019-03-23 16:02] LABS: Bacteria Urine Moderate (10-30); Mucus Urine 1+ (Negative); RBC Urine 10-30/HPF (0-5/HPF); Squamous Epithelial Cell Urine 1-5 /HPF (0-5/HPF); WBC Urine 30-100/HPF (0-5/HPF)
[2019-03-23] MEDS: KETOROLAC 60 MG/2 ML VIAL 30 MG IV (16:03)
[2019-03-23] MEDS: CEFTRIAXONE 1 GM/50 ML FROZ.PIGGY IV (16:04)
[2019-03-23] MEDS: SODIUM CHLORIDE 0.9% 1,000 ML 1000 ML IV ×2 (16:04→17:17)
[2019-03-23 16:05] LABS: Culture Indicated Urine Specimen Cultured; Granular Casts Urine 0-1/LPF
[2019-03-23] MEDS: METOCLOPRAMIDE 10 MG/2 ML INJ IV (16:05)
[2019-03-23 16:12] LABS: Add Manual Diff / Slide Review NO; Basophils Absolute Auto 0 /uL (0-100); Basophils Percent Auto 0.2 % (0-2); Eosinophils Absolute Auto 0 /uL (0-450); Hematocrit 36.3 % (36-46); Hemoglobin 12.5 g/dL (12.0-16.0); Lymphocytes Absolute Auto 200 /uL (1100-4500); Lymphocytes Percent Auto 2.6 % (25-40); Mean Corpuscular HGB Conc 34.3 % (30-36); Mean Corpuscular Hemoglobin 30.9 PG (26-34); Mean Corpuscular Volume 90.1 fL (80-100); Monocytes Absolute Auto 900 /uL (0-900); Monocytes Percent Auto 9.8 % (3-14); Neutrophils Absolute Auto 8300 /uL (1500-7000); Neutrophils Percent Auto 87.4 % (50-75); Platelet Count 148 X10^3/uL (150-400); Red Blood Cell Count 4.03 X10^6/uL (4.0-5.2); White Blood Cell Count 9.5 X10^3/uL (4.5-11.0)
[2019-03-23 16:13] LABS: Alanine Aminotransferase 17 IU/L (<35); Albumin 3.3 g/dL (3.5-5.0); Albumin Globulin Ratio 1.1 (1.0-2.8); Alkaline Phosphatase 88 U/L (38-126); Aspartate Aminotransferase 22 IU/L (14-36); BUN Creatinine Ratio 13.3 (6-22); Bilirubin Total 0.6 mg/dL (0.2-1.3); Blood Urea Nitrogen 12 mg/dL (7-17); Calcium 9.6 mg/dL (8.4-10.2); Carbon Dioxide 20 mmol/L (22-32); Chloride 100 mmol/L (98-107); Estimated Glomerular Filt Rate > 60.0 mL/min (>60); Globulin 2.9 g/dL (1.7-4.1); Glucose 108 mg/dL (70-100); HEMOLYSIS < 15 (0-50); Potassium 4.2 mmol/L (3.4-5.1); Sodium 132 mmol/L (137-145); Total Protein 6.2 g/dL (6.3-8.2)
[2019-03-23 16:14] LABS: Lactate (Lactic Acid) 0.9 mmol/L (0.7-2.1)
[2019-03-23 16:30] VITALS: BP 114/59; PULSE 113; RESP 23; O2SAT 99
[2019-03-23 16:39] LABS: Procalcitonin 9.25 ng/mL (<0.5)
[2019-03-23 17:33] VITALS: BP 108/63; PULSE 93; RESP 18; O2SAT 98
[2019-03-23 18:34] VITALS: BP 110/70; PULSE 80; RESP 18; TEMP 36.7; O2SAT 98
== END 2019-03-23 18:30 | disposition home or self-care (01) ==
PROVIDERS: Emergency Provider Nurse Practitioner
DX: N10 Acute pyelonephritis (principal)
CPT/HCPCS: 36415; 74176; 80053; 81003; 81015; 81025; 83605; 84145; 85025; 87040; 87077; 87086; 93005; 96361; 96365; 96375; 99284; 99285; J1885; J2765

== ENCOUNTER 2020-08-31 11:52 | Emergency (ER) | payer OTHER, SELFPAY ==
[2020-08-31 11:58] VITALS: BP 140/90; PULSE 106; RESP 17; TEMP 36.8; O2SAT 100
[2020-08-31 15:28] VITALS: BP 120/80; PULSE 81; RESP 16; O2SAT 100
--- NOTE | 2020-08-31 15:52 | ED_ITS ---
HPI - Female Genitourinary General Chief complaint: Abdominal Pain Stated complaint: thinks IUD is miss placed Time Seen by Provider: 08/31/20 12:31 Source: patient Mode of arrival: Ambulatory Limitations: no limitations History of Present Illness HPI Narrative: This is a 24-year-old female comes to the emergency department with concern for her IUD being out of place. Patient states she has had increasing pelvic cramping. She has had cramping intermittently since her copper IUD was placed which she states she was told to expect for 6 months to a year. She has had in place for about a year and a half. Patient states she has had heavy periods ever since as well. She states that her boyfriend had checked the IUD for her and felt like there was something hard up poking out so she was unsure if it was starting to fall out and may be increasing her discomfort. Patient has not been having any fevers no nausea vomiting, she has had some nausea intermittently when her cramps are intense. She denies any other abdominal or flank pain otherwise. She has not had any urinary symptoms, no dysuria, urgency or frequency. She has not had any black or bloody stools. She has not appreciated any new vaginal discharge. Patient denies any other medical issues. Related Data Previous Rx's Medication Instructions Recorded ondansetron HCl [Zofran] 4 mg PO QID PRN #7 tab 08/31/20 Allergies Allergy/AdvReac Type Severity Reaction Status Date / Time No Known Drug Allergies Allergy Verified 08/31/20 12:01 Review of Systems Review of Systems ROS Unobtainable: All systems reviewed & are unremarkable except as noted in HPI and below Patient History Medical History (Updated 08/31/20 @ 16:19 by Dorothea Hearn DO) No chronic problems Surgical History Status post tonsillectomy alcohol intake frequency: other Last Alcoholic Drink: none Substance Use Type: does not use Exam Narrative Exam Narrative: GENERAL: Alert and oriented x three, well-nourished female in mild distress. HEENT: Head normocephalic, atraumatic, EOMI, pupils reactive, face symmetric, moist mucous membranes NECK: Supple, full range of motion CARDIOVASCULAR: Regular rate and rhythm without murmurs, rubs or gallops. RESPIRATORY: Breath sounds equal bilaterally, no wheezes rales or rhonchi. ABDOMEN: Soft, nontender. Normoactive bowel sounds all 4 quadrants. No guarding or rebound, rigidity, no mass : No CVA tenderness Female: external vaginal exam is normal, no vaginal bleeding, scant white discharge, no cervical motion tenderness, patient's strength for her IUD are present, there is no portion of the IUD ext treating from the cervical os, otherwise normal speculum exam, no adnexal tenderness/mass. Bimanual exam is normal, no enlarged or tender uterus. Non-gravid. EXTREMITIES: Normal range of motion, no clubbing or edema. Neurovascularly in NEUROLOGICAL: Cranial nerves II through XII grossly intact. Moving all extre mities SKIN: Warm, dry, no petechiae, no rashes or lesions. Initial Vital Signs Initial Vital Signs: Vital Signs Temperature 98.3 F 08/31/20 11:58 Pulse Rate 106 H 08/31/20 11:58 Respiratory Rate 17 08/31/20 11:58 Blood Pressure 140/90 08/31/20 11:58 Pulse Oximetry 100 08/31/20 11:58 Course Orders Ordered: ED Orders 08/31/20 16:15 Chlamydia/Gonoc/Myco Genital Stat Genital Culture Stat Vital Signs Vital signs: Vital Signs - 8 hr 08/31/20 11:58 08/31/20 15:28 08/31/20 16:25 Temperature 98.3 F Pulse Rate 106 H 81 80 Respiratory Rate 17 16 16 Blood Pressure 140/90 120/80 126/75 Pulse Oximetry [address] [facility] - Female Genitourinary Lab Data Attestation: I reviewed the patient's lab results. Labs: Point of Care Testing Test Results Negative Urine Dip Bedside Urine Glucose Negative Bedside Urine Bilirubin - Negative Bedside Urine Ketone - Negative Urine Specific [place] 1.020 Bedside Urine Occult Blood - Negative Bedside Urine pH 6.5 Bedside Urine Protein - Negative Bedside Urine Urobilinogen - Negative Bedside Urine Nitrite - Negative Bedside Urine Leukocytes - Negative Esterase [facility] Narrative Medical decision making narrative: This a pleasant 24-year-old female who comes in with concern for possibly having her IUD be misplaced. Patient had placed about a year and half ago she has had continuous cramping since then but increasing in discomfort recently. She has not had any other obvious symptoms other than some nausea. On exam her IUD appears in place there is a scant amount of discharge but she is nontender with palpation of the cervix. Discussed with patient recommended treatment with antibiotics but she defers and would like to wait for the cultures at this time. She is sexually active. Patient states she was checked in the last couple months at her annual flight physical and was negative at that time. Patient is aware that the gonorrhea c hlamydia culture takes about a week to return, general culture take several days. We also [facility] feels [facility] necessary. Discharge Plan Departure Patient Disposition: Home Clinical Impression: Pelvic pain Instructions: DI for Pelvic Pain Activity Restrictions/Additional Instructions: [facility] up [facility] industrial organizational [facility]. Your IUD does appear to be in place today but if is continuing to seem uncomfortable or painful and you have negative cultures you can follow-up for discussion about removal if needed. Your cultures are pending. The genital culture takes 2-3 days to return the gonorrhea and chlamydia culture take about a week to return. If these are positive you should expect a phone call as you have elected not to start antibiotics today. You may take Zofran 1 tablet every 6 hours as needed for nausea. Prescription to [facility] [place]. You may take Tylenol up to a 1000 mg every 8 hours and or ibuprofen up to 800 mg every 8 hours. Please return for fever, new or worsening abdominal or flank pain, persistent vomiting, new or changing vaginal discharge vaginal bleeding, or other new or concerning symptoms. Prescriptions: New ondansetron HCl [Zofran] 4 mg tablet 4 mg PO QID PRN (Reason: nausea and vomiting) Qty: 7 RF: 0
[2020-08-31 16:25] VITALS: BP 126/75; PULSE 80; RESP 16; O2SAT 99
== END 2020-08-31 16:26 | disposition home or self-care (01) ==
PROVIDERS: Emergency Provider Emergency Medicine
DX: R10.2 Pelvic and perineal pain (principal); Z97.5 Presence of (intrauterine) contraceptive device
CPT/HCPCS: 81003; 81025; 87070; 87205; 87491; 87563; 87591; 99282

== ENCOUNTER 2020-09-09 19:58 | Emergency (ER) | payer OTHER, SELFPAY ==
[2020-09-09] VITALS (10 sets, daily range): BP systolic 122–167; BP diastolic 66–85; PULSE 95–145; RESP 12–22; TEMP 37.2; O2SAT 92–100
--- NOTE | 2020-09-09 20:23 | ED.ARRPALP ---
HPI - Arrhythmia/Palpitations General Chief Complaint: Arrhythmia/Palpitations Stated Complaint: thinks bad reaction to sleep medication Time Seen by Provider: 09/09/20 20:05 Source: patient Mode of arrival: Ambulatory Limitations: no limitations History of Present Illness HPI narrative: 24-year-old femaleWith history of pelvic pain, significant insomnia presents with her significant other and a chief complaint of feeling anxious and jittery in the aftermath of taking some dain-xpw-[id number] sleep medications. She states that she took a double dose of Unisom at about 4:00 p.m. and has felt as stated since. She does admit that she is feeling a bit better over the past hour so but still not at her baseline. She denies any fever or chills. She is not dizzy nor weak or lightheaded. She denies any chest pain or significant shortness of breath. She denies any history of blood clot or cancer MD complaint: rapid heart beat, heart racing and palpitations Onset (ago): hour(s) Duration: constant Severity: moderate Context: change in medication Associated symptoms: anxiety Related Data Previous Rx's Medication Instructions Recorded ondansetron HCl [Zofran] 4 mg PO QID PRN #7 tab 08/31/20 Allergies Allergy/AdvReac Type Severity Reaction Status Date / Time No Known Drug Allergies Allergy Verified 08/31/20 12:01 Review of Systems Constitutional Constitutional: Denies chills, Denies fatigue, Denies fever(s), Denies frequent falls, Denies lethargy and Denies weakness Eyes Eyes: Denies change in vision, Denies eye discharge, Denies irritation and Denies loss of vision ENT Ears, Nose, Mouth, and Throat: Denies change in voice, Denies dizziness, Denies neck pain, Denies sore throat and Denies throat swelling Cardiovascular Cardiovascular: Denies chest pain, Reports irregular heart rhythm, Denies lightheadedness, Reports palpitations, Denies dyspnea, Denies dyspnea on exertion and Denies orthopnea Respiratory Respiratory: Denies cough, Denies dyspnea, Denies dyspnea on exertion and Denies wheezing Gastrointestinal Gastrointestinal: Denies abdominal pain, Denies change in bowel habits, Denies diarrhea, Denies nausea and Denies vomiting Musculoskeletal Musculoskeletal: Denies neck pain and Denies numbness Integumentary/Breasts Skin/Breast: Denies pruritus, Denies erythema, Denies rash and Denies wounds Neurologic Neurologic: Denies behavioral changes, Denies confusion, Denies dizziness, Denies frequent falls, Denies loss of vision, Denies numbness and Denies weakness Psychiatric Psychiatric: Reports anxiety, Denies behavioral changes, Denies confusion, Denies depression, Denies homicidal ideation and Denies suicidal ideation Endocrine Endocrine: Denies fatigue, Denies flushing and Reports palpitations Hematologic/Lymphatic Hematologic/Lymphatic: Denies easy bruising Allergic/Immunologic Allergic/Immunologic: Denies urticaria, Denies throat swelling and Denies wheezing Patient History Medical History No chronic problems Surgical History Status post tonsillectomy Social History Smoking Status: Never smoker Smoking Status: Never smoker alcohol intake frequency: other Substance Use Type: does not use Exam Narrative Exam Narrative: GENERAL: [24] year old patient appears stated age. Well-nourished, well-developed patient, in mild distress. A bit anxious HEAD: Atraumatic. Normocephalic. EYES: Pupils equal round and reactive. Extraocular motions intact. No scleral icterus. No injection or drainage. ENT: Nose without bleeding, purulent drainage. Throat without erythema, tonsillar hypertrophy or exudate. Airway patent. NECK: Trachea midline. Non tender CARDIOVASCULAR: Tachycardic but regular rhythm without murmurs, gallops, or rubs. RESPIRATORY: Clear to auscultation. Breath sounds equal bilaterally. No wheezes, rales, or rhonchi. GASTROINTESTINAL: Abdomen soft, non-tender, nondistended. EXTREMITIES: No edema or joint tenderness. BACK: Nontender without deformity or crepitance. No flank tenderness. NEURO: AOx3. SKIN: No rash or erythema of visible areas Initial Vital Signs Initial Vital Signs: Vital Signs Temperature 99.0 F 09/09/20 20:11 Pulse Rate 145 H 09/09/20 20:11 Respiratory Rate 20 09/09/20 20:11 Blood Pressure 167/77 H 09/09/20 20:11 Pulse Oximetry 100 09/09/20 20:11 Course Orders Ordered: ED Orders 09/09/20 21:12 Basic Metabolic Panel Stat Complete Blood Count AUTO DIFF Stat D Dimer Stat Magnesium Stat Prothrombin Time INR Stat Thyroid Stimulating Hormone Stat Troponin & CK Cardiac Panel Stat 09/09/20 21:42 CT angio chest PE protocol Stat Discontinued Medications Sodium Chloride (Normal Saline 0.9%) 1,000 mls @ 1,000 mls/hr IV BOLUS ONE Stop: 09/09/20 22:00 Last Infusion: 09/09/20 23:24 Dose: 0 mls/hr Documented by: Admin: 09/09/20 21:15 Dose: 1,000 mls/hr Documented by: KORTNEY Vital Signs Vital signs: Vital Signs - 8 hr 09/09/20 22:00 09/09/20 22:25 09/09/20 22:30 Pulse Rate 96 H 101 H 98 H Respiratory Rate 18 13 12 Blood Pressure 136/76 135/70 122/66 Pulse Oximetry 100 92 100 09/09/20 23:00 09/09/20 23:25 Pulse Rate 96 H 95 H Respiratory Rate 20 20 Blood Pressure 127/71 132/81 Pulse Oximetry 99 99 MDM - Arrhythmia/Palpitations Lab Data Result diagrams: 09/09/20 21:12 09/09/20 21:12 Labs: Lab Results 09/09/20 09/09/20 09/09/20 Range/Units 21:12 21:12 21:12 WBC 9.3 (4.5-11.0) X10^3/uL RBC 4.52 (4.0-5.2) X10^6/uL Hgb 13.6 (12.0-16.0) g/dL Hct 39.8 (36-46) % MCV 88.1 (80-100) fL MCH 30.0 (26-34) PG MCHC 34.1 (30-36) % RDW 12.7 (11.6-14.8) % Plt Count 217 (150-400) X10^3/uL Neut % (Auto) 83.1 H (50-75) % Lymph % (Auto) 9.5 L (25-40) % [place] % (Auto) 6.8 (3-14) % Eos % (Auto) 0.2 L (2-4) % Baso % (Auto) 0.4 (0-2) % Neut # (Auto) 7700 H (6138-2974) /uL Lymph # (Auto) 900 L (4250-6103) /uL [place] # (Auto) 600 (0-900) /uL Eos # (Auto) 0 (0-450) /uL Baso # (Auto) 0 (0-100) /uL PT 12.3 (10.1-12.7) SECONDS INR 1.1 (0.9-1.3) D-Dimer 263 H (<230) ng/mL Sodium 140 (137-145) mmol/L Potassium 3.7 (3.4-5.1) mmol/L Chloride 108 H (98-107) mmol/L Carbon Dioxide 24 (22-32) mmol/L BUN 6 L (7-17) mg/dL Creatinine 0.69 (0.52-1.04) mg/dL Estimated GFR > 60.0 (>60) mL/min BUN/Creatinine Ratio 8.7 (6-22) Glucose 94 (70-100) mg/dL Calcium 10.6 H (8.4-10.2) mg/dL Magnesium 2.0 (1.6-2.3) mg/dL Total Creatine Kinase 76 (30-135) U/L CK-MB (CK-2) TNP CK-MB (CK-2) Rel Index TNP Troponin I < 0.012 (0.01-0.034) ng/mL TSH (0.47-4.68) uIU/mL 09/09/20 Range/Units 21:12 WBC (4.5-11.0) X10^3/uL RBC (4.0-5.2) X10^6/uL Hgb (12.0-16.0) g/dL Hct (36-46) % MCV (80-100) fL MCH (26-34) PG MCHC (30-36) % RDW (11.6-14.8) % Plt Count (150-400) X10^3/uL Neut % (Auto) (50-75) % Lymph % (Auto) (25-40) % [place] % (Auto) (3-14) % Eos % (Auto) (2-4) % Baso % (Auto) (0-2) % Neut # (Auto) (8939-9923) /uL Lymph # (Auto) (7128-2136) /uL [place] # (Auto) (0-900) /uL Eos # (Auto) (0-450) /uL Baso # (Auto) (0-100) /uL PT (10.1-12.7) SECONDS INR (0.9-1.3) D-Dimer (<230) ng/mL Sodium (137-145) mmol/L Potassium (3.4-5.1) mmol/L Chloride (98-107) mmol/L Carbon Dioxide (22-32) mmol/L BUN (7-17) mg/dL Creatinine (0.52-1.04) mg/dL Estimated GFR (>60) mL/min BUN/Creatinine Ratio (6-22) Glucose (70-100) mg/dL Calcium (8.4-10.2) mg/dL Magnesium (1.6-2.3) mg/dL Total Creatine Kinase (30-135) U/L CK-MB (CK-2) CK-MB (CK-2) Rel Index Troponin I (0.01-0.034) ng/mL TSH 3.30 (0.47-4.68) uIU/mL MDM Narrative Medical decision making narrative: Patient presents anxious and tachycardic. A basic labs including D-dimer and IV fluids ordered. Her D-dimer came back elevated and therefore CT angiogram order to pursue PE as a possible cause of her tachycardia. After administration of the IV fluid her heart rate is down into the 80s, CTA was unremarkable. This seems likely to be a consequence of her arpy-qvq-jhijkpm medications, she admittedly tends to have atypical reactions medications. She feels much better, has had return precautions discussed and questions answered to her apparent satisfaction Discharge Plan Departure Patient Disposition: Home Clinical Impression: Adverse effect of [id number] medication Qualifiers: Encounter type: initial encounter Qualified Code(s): T50.905A - Adverse effect of unspecified drugs, medicaments and biological substances, initial encounter Instructions: DI for Adverse Drug Reaction -- Other Activity Restrictions/Additional Instructions: *You have been diagnosed with [adverse reaction to medication.] *What to do: *Follow up with your primary care provider in 2-3 days, call for an appointment. Let them know you were seen in the Emergency Department and that we ask that you be seen in follow up *Return to ER if you should have any new, worsening or concerning symptoms, such as [fever, shaking chills, nausea, vomiting, other bothersome symptoms] Prescriptions: No Action ondansetron HCl [Zofran] 4 mg tablet 4 mg PO QID PRN (Reason: nausea and vomiting) Qty: 7 RF: 0
[2020-09-09] MEDS: SODIUM CHLORIDE 0.9% 1,000 ML 1000 ML IV (21:15)
[2020-09-09 21:20] LABS: Add Manual Diff / Slide Review NO; Basophils Absolute Auto 0 /uL (0-100); Basophils Percent Auto 0.4 % (0-2); Eosinophils Absolute Auto 0 /uL (0-450); Eosinophils Percent Auto 0.2 % (2-4); Hematocrit 39.8 % (36-46); Hemoglobin 13.6 g/dL (12.0-16.0); Lymphocytes Absolute Auto 900 /uL (1100-4500); Lymphocytes Percent Auto 9.5 % (25-40); Mean Corpuscular HGB Conc 34.1 % (30-36); Mean Corpuscular Volume 88.1 fL (80-100); Monocytes Absolute Auto 600 /uL (0-900); Monocytes Percent Auto 6.8 % (3-14); Neutrophils Absolute Auto 7700 /uL (1500-7000); Neutrophils Percent Auto 83.1 % (50-75); Platelet Count 217 X10^3/uL (150-400); Red Blood Cell Count 4.52 X10^6/uL (4.0-5.2); Red Cell Distribution Width 12.7 % (11.6-14.8); White Blood Cell Count 9.3 X10^3/uL (4.5-11.0)
[2020-09-09 21:26] LABS: INR 1.1 (0.9-1.3); Prothrombin Time 12.3 SECONDS (10.1-12.7)
[2020-09-09 21:29] LABS: D Dimer 263 ng/mL (<230)
[2020-09-09 21:32] LABS: BUN Creatinine Ratio 8.7 (6-22); Blood Urea Nitrogen 6 mg/dL (7-17); Calcium 10.6 mg/dL (8.4-10.2); Carbon Dioxide 24 mmol/L (22-32); Chloride 108 mmol/L (98-107); Creatine Kinase 76 U/L (30-135); Estimated Glomerular Filt Rate > 60.0 mL/min (>60); Glucose 94 mg/dL (70-100); HEMOLYSIS < 15 (0-50); Potassium 3.7 mmol/L (3.4-5.1); Sodium 140 mmol/L (137-145)
--- NOTE | 2020-09-09 21:42 | DI.CT.S_ITS ---
PROCEDURE: CT ANGIO CHEST PE PROTOCOL INDICATIONS: short of breath, tachycardia, tachypnea, smoker TECHNIQUE: After the administration of intravenous contrast, 2 mm thick sections acquired from the pulmonary apices to the posterior costophrenic angles. 3-dimensional maximum intensity projection (MIP) coronal and sagittal reformats were then acquired through the thorax. For radiation dose reduction, the following was used: automated exposure control, adjustment of mA and/or kV according to patient size. COMPARISON: None. FINDINGS: Image quality: Diagnostic sensitivity for pulmonary embolus decreased due to suboptimal contrast opacification of the pulmonary arteries. Pulmonary arteries: Pulmonary arteries are normal in size, and demonstrate no intraluminal filling defects to suggest central pulmonary embolism. Lungs and pleura: Lungs are clear. No pleural effusions or pneumothorax. Central and peripheral airways are patent. Mediastinum: Heart size is normal, without pericardial effusion. No mediastinal or hilar adenopathy. Thoracic aorta is normal in caliber and enhancement. Esophagus is normal in caliber, without hiatal hernia. Bones and chest wall: No suspicious bony lesions. Ribs and thoracic spine appear intact throughout. Thyroid gland is within normal limits. No axillary or supraclavicular adenopathy. Abdomen: Visualized upper abdominal solid organs appear normal in the early arterial phase of enhancement. IMPRESSION: 1. Diagnostic sensitivity of study decreased due to suboptimal contrast opacification of the pulmonary arteries. 2. No definite evidence of pulmonary embolus. If there is appropriate index of suspicion for pulmonary embolus, repeat CT angiogram or nuclear medicine V/Q scan should be considered for further evaluation 3. No lung consolidation or pleural effusions. Dictated by: Madai Farris MD, PhD on 09/10/2020 at 6:56 Approved by: Madai Farris MD, PhD on 09/10/2020 at 7:01
[2020-09-09 21:44] LABS: Troponin I < 0.012 ng/mL (0.01-0.034)
== END 2020-09-09 23:30 | disposition home or self-care (01) ==
PROVIDERS: Emergency Provider Emergency Medicine
DX: F41.9 Anxiety disorder, unspecified (principal); R00.0 Tachycardia, unspecified; T50.905A Adverse effect of unspecified drugs, medicaments and biological substances, initial encounter
CPT/HCPCS: 36415; 71275; 80048; 82550; 83735; 84443; 84484; 85025; 85379; 85610; 93005; 96360; 96361; 99284; Q9967